=== PATIENT | female | born 1965 | race Caucasian/White ===

== ENCOUNTER → 2016-11-22 | Day surgery (SDC) | payer OTHER ==
[~2016-11-22] VITALS: Ht 162.6 cm; Wt 105.2 kg
[~2016-11-22] MED LIST: *morphine SULFATE 8 MG/ML PERIprocedure ONLY ONE; ACETAMINOPHEN 1000 MG/100 ML VIAL IV ONE; BUPIVACAINE HCL PF 0.25% 30 ML VIAL ONE; CHLORHEXIDINE GLUCONATE 2 % 1 PACK (2 CLOTHS) TOPICAL PRN; CHLORHEXIDINE GLUCONATE 4% SOLN 120 ML BTL TOPICAL SCH; CLINDAMYCIN PHOS 600 MG/4 ML VIAL ONE; CYMB60CA PO; DEXAMETHASONE SOD PHOS 4 MG/ML VIAL ONE; DICL75TA PO; DO NOT ADM ANY ANTICOAGULANT DRUGS PRN; FAMOTIDINE 20 MG/2 ML VIAL ONE; GENTAMICIN SULFATE 80 MG/2 ML VIAL ONE; INSULIN HUMAN REGULAR 1,000 UNITS/10 ML VIAL SQ PRN; KETOROLAC TROMETHAMINE 30 MG/ML (IVP) VIAL IVP ONE; LACTATED RINGER'S 1000 ML INJ 1,000 ML IV ONE; LACTATED RINGER'S 1000 ML IV PRN; LIDOCAINE HCL 1% 50 ML VIAL ONE; LISI10TA3 PO; METO25TA3 PO; METOPROLOL TARTRATE 25 MG TAB PO PRN; MIDAZOLAM HCL 2 MG/2 ML VIAL ONE; MORPHINE SULFATE 4 MG/ML INJ IV PUSH PRN; MORPHINE SULFATE 4 MG/ML INJ ONE; NORC5TAB PO; ONDANSETRON HCL 4 MG/2 ML VIAL IV PRN; ONDANSETRON HCL 4 MG/2 ML VIAL IV PUSH ONE; PERC5TAB12 PO; PHENYLEPH/NS 1000 MCG/10 ML SYR IV ONE; POVIDONE IODINE 5% (ANTISEPSIS KIT) 4 APPLICATIONS EACH NARE PRN; PROPOFOL 200 MG/20 ML AMP IV ONE; REME15TA PO; SODIUM CHLORID 0.9% 500 ML IV PRN; SODIUM CHLORIDE 0.9% FLUSH 10 ML FLUSH IV FLUSH PRN; SODIUM CHLORIDE 0.9% FLUSH 10 ML FLUSH IV FLUSH SCH; VANCOMYCIN 1000 MG/NS 250 ML (for <70 kg) IV SCH; ceFAZolin 2 GM PREMIX 50 ML IV SCH; fentaNYL CITRATE 250 MCG/5 ML AMP ONE; oxyCODONE/ACETAMINOPHEN 5 MG/325 MG TAB PO PRN
[2016-11-22 13:23] VITALS: BP 150/83; PULSE 75; RESP 20; TEMP 99.2; O2SAT 97
--- NOTE | 2016-11-22 15:53 | PD.OP ---
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 Surgeon: Romeo Abreu Haircutter(s): Staff Resident Surgeon: None Operation and Findings: PROCEDURE: After all potential complications, risks, as well as anticipated benefits of the above-named procedure were discussed at length with the patient , informed consent was obtained. The operative extremity was then confirmed with the patient, the operative surgeon, anesthesia, and nursing staff. The patient was then transferred to the operative table and placed in the prone position. All bony prominences were well padded at this time. A nonsterile tourniquet was placed on the left lower extremity The lower extremity was sterilely prepped and draped in the usual sterile fashion. The extremity was elevated and the tourniquet was inflated to 250 mmHg. After all bony and soft tissue land sexton were identified, a 6 cm longitudinal incision was made in line with the Achilles tendon. Achilles tendon was split in half from 3-4 cm proximally and extending distally onto its insertion on the calcaneus. Both halves of the tendon were detached distally exposing a large calcaneal exostosis as well as a large Bello exostosis. Using an oscillating saw the Bello as well as the posterior calcaneal exostosis were resected. The ends of the tendon were carefully debrided and cleaned off any devitalized and calcified tissue. 2 loaded swivel lock lock 4.4 mm arthrex anchors were placed about 1cm proximal to the achiles insertion. The sutures were double ended and passed through the center of each halves of the free tendon. 2 knotless swivel lock anchors holes were drilled and placed at the Achilles insertion site. While holding tension, one limb from each swivel lock anchors were loaded onto the knotless anchors and secured in place. The repair was excellent and remained intact through plantar flexion. The split tendon was repaired with #1 Vicryl. Tourniquet was released. The wound was thoroughly irrigated. Hemostasis obtained. The wound was closed with 3-0 Vicryl in the subcutaneous and 4-0 Monocryl. Sterile dressing was applied. Patient was placed in a well-padded short leg posterior splint in resting 30 deg plantar flexed position. The patient was transferred back Postanesthesia Care Unit. The patient tolerated the procedure well. There were no complications. Romeo Abreu Jr., MD Nov 22, 2016 15:53
--- NOTE | 2016-11-22 16:32 | RADRPT ---
EXAM DATE/TIME: 11/22/2016 15:21 [facility] COMPARISON: No previous studies available for comparison. INDICATIONS : Left heel exostosis excision. MEDICAL HISTORY : None. SURGICAL HISTORY : None. ENCOUNTER: Initial ACUITY: 1 day PAIN SCORE: Non-responsive. LOCATION: Left heel FINDINGS: 2 intraoperative images left heel. Metallic instrument is seen posteriorly. Alignment within normal l imits. CONCLUSION: Intraoperative images left heel. Vince Gabriel MD on November 22, 2016 at 16:29 Board Certified Radiologist. This report was verified electronically.
[2016-11-22 17:45] VITALS: BP 124/76; PULSE 93; RESP 16; TEMP 98.5; O2SAT 96
--- NOTE | 2016-11-23 12:11 | EKG ---
Date Performed: 11/22/2016 Time Performed: 13:17:54 PTAGE: 50 years EKG: Sinus rhythm LOW QRS VOLTAGE IN PRECORDIAL LEADS NONSPECIFIC T-WAVE ABNORMALITY BORDERLINE ECG NO PREVIOUS TRACING DOCTOR: Subhash Collazo Interpretating Date/Time 11/23/2016 12:08:18
== END | disposition home or self-care (01) ==
LOC: HSDC 12:29
PROVIDERS: ATTEND Orthopaedic Surgery
DX: M92.62 Juvenile osteochondrosis of tarsus, left ankle (principal); M76.62 Achilles tendinitis, left leg; I10 Essential (primary) hypertension; F32.9 Major depressive disorder, single episode, unspecified; Z88.1 Allergy status to other antibiotic agents; Z88.8 Allergy status to other drugs, medicaments and biological substances; E66.9 Obesity, unspecified; Z68.39 Body mass index [BMI] 39.0-39.9, adult
CPT/HCPCS: 28119; 73650; 76000; 86850; 86900; 86901; 93005; 94150; C1713; J0131; J1100; J1580; J1885; J2250; J2270; J2370; J2405; J3010; J3370; J7050; J7120